=== PATIENT | male | born 1985 | race Asian ===

== ENCOUNTER 2018-08-07 02:59 | Inpatient (IN) | payer SELFPAY, BC, OTHER ==
[2018-08-07] MEDS: FAMOTIDINE 20 MG INJ IV (05:13)
[2018-08-07] MEDS: morphine 2 MG INJ IV ×2 (05:13→13:11)
[2018-08-07] MEDS: SOD CHLORIDE 0.9% 1,000 ML IV ×2 (05:13→12:36)
[2018-08-07] MEDS: ONDANSETRON 4 MG INJ IV (05:13)
[2018-08-07 05:24] LABS: ADD MAN DIFF? NO
[2018-08-07 05:25] LABS: WHITE BLOOD COUNT 12.5 10^3/ul (4.8-10.8)
[2018-08-07 05:25] LABS: BASOPHIL # 0.1 10^3/ul (0.0-0.1); BASOPHILS % 0.4 % (0.0-2.0); EOSINOPHILS # 0.2 10^3/ul (0.0-0.5); EOSINOPHILS % 1.4 % (0.0-7.0); HEMATOCRIT 46.3 % (42.0-52.0); HEMOGLOBIN 15.1 g/dl (14.0-18.0); LYMPHOCYTES # 1.1 10^3/ul (0.8-2.9); LYMPHOCYTES % 9.1 % (15.0-51.0); MEAN CORPUSCULAR HEMOGLOBIN 29.1 pg (29.0-33.0); MEAN CORPUSCULAR HGB CONC 32.6 g/dl (32.0-37.0); MEAN CORPUSCULAR VOLUME 89.2 fl (82.0-101.0); MEAN PLATELET VOLUME 8.8 fl (7.4-10.4); MONOCYTE # 0.7 10^3/ul (0.3-0.9); MONOCYTES % 5.6 % (0.0-11.0); NEUTROPHIL # 10.4 10^3/ul (1.6-7.5); NEUTROPHILS % 82.9 % (39.0-77.0); PLATELET COUNT 309 10^3/UL (140-415); RED BLOOD COUNT 5.19 10^6/ul (4.70-6.10); RED CELL DISTRIBUTION WIDTH 12.3 % (11.5-14.5)
[2018-08-07 05:28] LABS: ADD UMIC NO; UR ASCORBIC ACID NEGATIVE (NEGATIVE); UR BILIRUBIN (Dip) NEGATIVE (NEGATIVE); UR BLOOD (Dip) NEGATIVE (NEGATIVE); UR CLARITY CLEAR (CLEAR); UR COLOR STRAW (YELLOW); UR GLUCOSE (Dip) NEGATIVE (NEGATIVE); UR KETONES (Dip) NEGATIVE (NEGATIVE); UR LEUKOCYTE ESTERASE (Dip) NEGATIVE Leu/ul (NEGATIVE); UR NITRITE (Dip) NEGATIVE (NEGATIVE); UR SPECIFIC GRAVITY (Dip) 1.004 (1.003-1.030); UR TOTAL PROTEIN (Dip) NEGATIVE (NEGATIVE); UR UROBILINOGEN (Dip) NEGATIVE (NEGATIVE)
[2018-08-07 05:54] LABS: ALANINE AMINOTRANSFERASE 48 IU/L (13-69); ALBUMIN/GLOBULIN RATIO 1.51; ALKALINE PHOSPHATASE 78 IU/L (42-121); ANION GAP 9 (5-13); ASPARTATE AMINO TRANSFERASE 34 IU/L (15-46); BILIRUBIN,INDIRECT 0.7 mg/dl (0-1.1); BILIRUBIN,TOTAL 0.7 mg/dl (0.2-1.3); BLOOD UREA NITROGEN 13 mg/dl (7-20); CALCIUM 10.6 mg/dl (8.4-10.2); CARBON DIOXIDE 30 mmol/L (21-31); CHLORIDE 102 mmol/L (97-110); CREATININE 0.89 mg/dl (0.61-1.24); Estimated GFR > 60 mL/min (>60); GLUCOSE 105 mg/dl (70-220); LIPASE 43 U/L (23-300); POTASSIUM 4.9 mmol/L (3.5-5.1); SODIUM 141 mmol/L (135-144); TOTAL PROTEIN 8.3 g/dl (6.1-8.1)
[2018-08-07] MEDS: PIPER-TAZO 3.375 GM IV (PMX) 100 ML IVPB ×3 (06:47→18:13)
[2018-08-07] MEDS ORDERED: ONDANSETRON 4 MG INJ IV ×3 (07:30→21:30)
[2018-08-07] MEDS ORDERED: ACETAMINOPHEN 325 MG TAB PO ×2 (07:30→12:00)
[2018-08-07] MEDS ORDERED: MAGNESIUM HYDROXIDE 30ML CUP PO (12:00)
[2018-08-07] MEDS ORDERED: hydrALAzine 20 MG INJ IV (12:00)
[2018-08-07] MEDS ORDERED: LORAZEPAM 2 MG INJ IV (12:00)
[2018-08-07] MEDS ORDERED: DOCUSATE SODIUM 100 MG CAP PO (12:00)
[2018-08-07] MEDS ORDERED: ALBUTEROL/IPRATROPIUM (NEB) 3 ML AMP HHN (12:00)
[2018-08-07] MEDS ORDERED: NITROGLYCERIN (SL) 0.4 MG TAB SL (12:00)
[2018-08-07] MEDS ORDERED: NACL 0.9% 3 ML SYG IV (12:00)
[2018-08-07] MEDS ORDERED: HYDROCODONE/APAP (5/325) TAB PO (12:00)
[2018-08-07 12:30] LABS: PARTIAL THROMBOPLASTIN TIME 29.7 Sec (23.0-35.0)
[2018-08-07 12:31] LABS: INR 0.92; PROTIME 12.5 Sec (11.9-14.9)
[2018-08-07 13:12] LABS: FREE T4 (FREE THYROXINE) 1.01 ng/dl (0.79-2.35)
[2018-08-07] MEDS: BUPIVACAINE 0.5%/EPI (SDV) 30 ML INJ (14:51)
[2018-08-07] MEDS ORDERED: ROPIVACAINE 0.5 % 30 ML VIAL (19:49)
[2018-08-07] MEDS ORDERED: ROCURONIUM 50 MG INJ (19:49)
[2018-08-07] MEDS ORDERED: MIDAZOLAM 1 MG/ML 2 ML INJ (19:49)
[2018-08-07] MEDS ORDERED: FENTAnyl 50 MCG/ML VIAL (19:49)
[2018-08-07] MEDS ORDERED: PROPOFOL 20 ML (19:49)
[2018-08-07] MEDS: HEPARIN 5,000 UNIT/1 ML VIAL SC (21:00)
[2018-08-07] MEDS ORDERED: ONDANSETRON 4 MG INJ (21:17)
[2018-08-07] MEDS ORDERED: DEXAMETHASONE 4 MG/ML 5 ML INJ (21:17)
[2018-08-07] MEDS ORDERED: KETOROLAC 30 MG INJ (21:17)
[2018-08-07] MEDS ORDERED: METOCLOPRAMIDE 10 MG INJ (21:17)
[2018-08-07] MEDS ORDERED: CEFAZOLIN 1 GM INJ (21:17)
[2018-08-07] MEDS ORDERED: OXYCODONE/ACETAMINOPHEN (5/325) TAB PO (21:30)
[2018-08-07] MEDS ORDERED: HYDROmorphONE 1 MG/5 ML IV SYRINGE IV ×3 (21:30)
[2018-08-07] MEDS ORDERED: FENTAnyl 50 MCG/ML VIAL IV ×3 (21:30)
[2018-08-07] MEDS ORDERED: METOCLOPRAMIDE 10 MG INJ IV (21:30)
[2018-08-07] MEDS ORDERED: LABETALOL HCL 20MG INJ IV (21:30)
[2018-08-07] MEDS ORDERED: EPHEDrine SULFATE 50 MG/5 ML SYG IV (21:30)
[2018-08-07] MEDS ORDERED: DIPHENHYDRAMINE 50 MG INJ IV (21:30)
[2018-08-07] MEDS ORDERED: MEPERIDINE 25 MG INJ IV (21:30)
[2018-08-07] MEDS ORDERED: NEOSTIGMINE 10 MG INJ (22:21)
[2018-08-07] MEDS ORDERED: GLYCOPYRROLATE 0.4 MG INJ (22:21)
[2018-08-07] MEDS ORDERED: NALOXONE (0.4 MG/ML) INJ (22:45)
[2018-08-08] MEDS ORDERED: ACETAMINOPHEN 325 MG TAB PO
[2018-08-08] MEDS ORDERED: ONDANSETRON 4 MG INJ IV
[2018-08-08] MEDS: ALBUTEROL 0.083% (NEB) 2.5 MG/3 ML AMP HHN (00:18)
[2018-08-08] MEDS: IPRATROPIUM (NEB) 0.5 MG/2.5 ML AMP HHN (00:18)
[2018-08-08] MEDS: FUROSEMIDE 20 MG INJ IV ×2 (00:37→15:15)
[2018-08-08] MEDS: SOD CHLORIDE 0.9% 1,000 ML IV (02:00)
[2018-08-08] MEDS: PIPER-TAZO 3.375 GM IV (PMX) 100 ML IVPB ×4 (02:36→18:23)
[2018-08-08] MEDS: D5W-0.45 NACL + KCL 20 MEQ 1,000 ML IV (02:37)
[2018-08-08] MEDS: HYDROmorphONE 0.5 MG/0.5 ML SYG IV ×4 (04:17→22:14)
[2018-08-08 05:17] LABS: ADD MAN DIFF? NO
[2018-08-08 05:22] LABS: ABNORMAL IP MESSAGE 1; BASOPHILS % 0.1 % (0.0-2.0); HEMATOCRIT 42.7 % (42.0-52.0); HEMOGLOBIN 14.1 g/dl (14.0-18.0); LYMPHOCYTES # 0.5 10^3/ul (0.8-2.9); LYMPHOCYTES % 3.5 % (15.0-51.0); MEAN CORPUSCULAR HEMOGLOBIN 29.7 pg (29.0-33.0); MEAN CORPUSCULAR VOLUME 89.9 fl (82.0-101.0); MEAN PLATELET VOLUME 9.1 fl (7.4-10.4); MONOCYTE # 0.5 10^3/ul (0.3-0.9); MONOCYTES % 3.9 % (0.0-11.0); PLATELET COUNT 278 10^3/UL (140-415); POSITIVE DIFF @See below; RED BLOOD COUNT 4.75 10^6/ul (4.70-6.10); RED CELL DISTRIBUTION WIDTH 12.5 % (11.5-14.5)
[2018-08-08 05:53] LABS: ANION GAP 8 (5-13); BLOOD UREA NITROGEN 16 mg/dl (7-20); CALCIUM 8.9 mg/dl (8.4-10.2); CARBON DIOXIDE 27 mmol/L (21-31); CHLORIDE 102 mmol/L (97-110); CHOL/HDL RATIO 2.9 RATIO; CHOLESTEROL 182 mg/dl (100-200); CREATININE 1.06 mg/dl (0.61-1.24); Estimated GFR > 60 mL/min (>60); GLUCOSE 145 mg/dl (70-220); HDL CHOLESTEROL 62 mg/dl (28-63); LDL CHOLESTEROL,CALCULATED 113 mg/dl; MAGNESIUM 1.6 mg/dl (1.7-2.5); PHOSPHORUS 4.2 mg/dl (2.5-4.9); POTASSIUM 3.8 mmol/L (3.5-5.1); SODIUM 137 mmol/L (135-144); TRIGLYCERIDES 33 mg/dl (0-149)
[2018-08-08 06:16] LABS: THYROID STIMULATING HORMONE 0.519 MIU/L (0.465-4.680)
[2018-08-08] MEDS: MAGNESIUM SULFATE 2 GM/50 ML 50 ML IVPB (07:04)
[2018-08-08 09:18] LABS: HEMOGLOBIN A1C 5.3 % (0-5.9)
[2018-08-08] MEDS: FAMOTIDINE 20 MG INJ IV ×2 (09:24→21:02)
[2018-08-08] MEDS: HEPARIN 5,000 UNIT/1 ML VIAL SC ×2 (09:32→21:00)
[2018-08-08] MEDS: DEXAMETHASONE 10 MG/ML 1 ML INJ IV (15:13)
[2018-08-08] MEDS: ALBUTEROL/IPRATROPIUM (NEB) 3 ML AMP HHN ×2 (15:50→21:00)
[2018-08-08] MEDS ORDERED: FUROSEMIDE 20 MG INJ IV (18:00)
[2018-08-09] MEDS: PIPER-TAZO 3.375 GM IV (PMX) 100 ML IVPB ×4 (00:34→18:30)
[2018-08-09] MEDS: ALBUTEROL/IPRATROPIUM (NEB) 3 ML AMP HHN ×5 (00:42→21:00)
[2018-08-09 06:35] LABS: ADD MAN DIFF? NO
[2018-08-09 06:52] LABS: WHITE BLOOD COUNT 9.8 10^3/ul (4.8-10.8)
[2018-08-09 06:53] LABS: BASOPHILS % 0.3 % (0.0-2.0); EOSINOPHILS % 0.2 % (0.0-7.0); HEMOGLOBIN 12.7 g/dl (14.0-18.0); LYMPHOCYTES # 1.6 10^3/ul (0.8-2.9); LYMPHOCYTES % 16.2 % (15.0-51.0); MEAN CORPUSCULAR HEMOGLOBIN 29.7 pg (29.0-33.0); MEAN CORPUSCULAR HGB CONC 32.6 g/dl (32.0-37.0); MEAN CORPUSCULAR VOLUME 91.1 fl (82.0-101.0); MEAN PLATELET VOLUME 9.5 fl (7.4-10.4); MONOCYTE # 0.6 10^3/ul (0.3-0.9); MONOCYTES % 6.3 % (0.0-11.0); NEUTROPHIL # 7.5 10^3/ul (1.6-7.5); NEUTROPHILS % 76.7 % (39.0-77.0); PLATELET COUNT 289 10^3/UL (140-415); RED BLOOD COUNT 4.28 10^6/ul (4.70-6.10); RED CELL DISTRIBUTION WIDTH 12.9 % (11.5-14.5)
[2018-08-09] MEDS: HYDROmorphONE 0.5 MG/0.5 ML SYG IV ×3 (07:00→22:35)
[2018-08-09 07:05] LABS: ANION GAP 7 (5-13); BLOOD UREA NITROGEN 15 mg/dl (7-20); CALCIUM 9.2 mg/dl (8.4-10.2); CARBON DIOXIDE 31 mmol/L (21-31); CHLORIDE 104 mmol/L (97-110); CREATININE 0.98 mg/dl (0.61-1.24); Estimated GFR > 60 mL/min (>60); GLUCOSE 92 mg/dl (70-220); POTASSIUM 4.1 mmol/L (3.5-5.1); SODIUM 142 mmol/L (135-144)
[2018-08-09] MEDS: FAMOTIDINE 20 MG INJ IV ×2 (09:06→21:18)
[2018-08-09] MEDS: KETOROLAC 30 MG INJ IV (09:06)
[2018-08-09] MEDS: HEPARIN 5,000 UNIT/1 ML VIAL SC ×2 (09:26→21:53)
[2018-08-09] MEDS: FUROSEMIDE 20 MG INJ IV (13:31)
[2018-08-09] MEDS ORDERED: VITAMIN A & D 5 GM OINT PACKET TOP (18:26)
[2018-08-10] MEDS: PIPER-TAZO 3.375 GM IV (PMX) 100 ML IVPB ×5 (00:55→23:31)
[2018-08-10] MEDS: ALBUTEROL/IPRATROPIUM (NEB) 3 ML AMP HHN ×4 (01:00→21:00)
[2018-08-10] MEDS: HYDROmorphONE 0.5 MG/0.5 ML SYG IV ×4 (04:57→23:32)
[2018-08-10 05:18] LABS: ADD MAN DIFF? NO
[2018-08-10 05:31] LABS: WHITE BLOOD COUNT 8.8 10^3/ul (4.8-10.8)
[2018-08-10 05:31] LABS: BASOPHIL # 0.1 10^3/ul (0.0-0.1); BASOPHILS % 0.6 % (0.0-2.0); EOSINOPHILS # 0.2 10^3/ul (0.0-0.5); EOSINOPHILS % 2.5 % (0.0-7.0); HEMATOCRIT 39.7 % (42.0-52.0); HEMOGLOBIN 12.8 g/dl (14.0-18.0); LYMPHOCYTES # 1.9 10^3/ul (0.8-2.9); LYMPHOCYTES % 21.8 % (15.0-51.0); MEAN CORPUSCULAR HEMOGLOBIN 29.2 pg (29.0-33.0); MEAN CORPUSCULAR HGB CONC 32.2 g/dl (32.0-37.0); MEAN CORPUSCULAR VOLUME 90.6 fl (82.0-101.0); MEAN PLATELET VOLUME 9.2 fl (7.4-10.4); MONOCYTE # 0.6 10^3/ul (0.3-0.9); MONOCYTES % 6.8 % (0.0-11.0); NEUTROPHILS % 67.8 % (39.0-77.0); PLATELET COUNT 304 10^3/UL (140-415); RED BLOOD COUNT 4.38 10^6/ul (4.70-6.10); RED CELL DISTRIBUTION WIDTH 12.6 % (11.5-14.5)
[2018-08-10 05:57] LABS: ANION GAP 11 (5-13); BLOOD UREA NITROGEN 19 mg/dl (7-20); CALCIUM 9.2 mg/dl (8.4-10.2); CARBON DIOXIDE 30 mmol/L (21-31); CHLORIDE 102 mmol/L (97-110); Estimated GFR > 60 mL/min (>60); GLUCOSE 95 mg/dl (70-220); SODIUM 143 mmol/L (135-144)
[2018-08-10] MEDS: FAMOTIDINE 20 MG INJ IV ×2 (07:48→21:52)
[2018-08-10] MEDS: HEPARIN 5,000 UNIT/1 ML VIAL SC ×2 (08:02→22:01)
[2018-08-10] MEDS ORDERED: HYDROmorphONE 1 MG/5 ML IV SYRINGE IV ×3 (21:00)
[2018-08-10] MEDS ORDERED: METOCLOPRAMIDE 10 MG INJ IV (21:00)
[2018-08-10] MEDS ORDERED: ONDANSETRON 4 MG INJ IV (21:00)
[2018-08-10] MEDS ORDERED: hydrALAzine 20 MG INJ IV (21:00)
[2018-08-10] MEDS ORDERED: FENTAnyl 50 MCG/ML VIAL IV ×3 (21:00)
[2018-08-10] MEDS ORDERED: EPHEDrine SULFATE 50 MG/5 ML SYG IV (21:00)
[2018-08-10] MEDS ORDERED: LABETALOL HCL 20MG INJ IV (21:00)
[2018-08-11] MEDS: ALBUTEROL/IPRATROPIUM (NEB) 3 ML AMP HHN ×2 (01:00→05:00)
[2018-08-11 05:45] LABS: ADD MAN DIFF? NO
[2018-08-11] MEDS: HYDROmorphONE 0.5 MG/0.5 ML SYG IV (05:47)
[2018-08-11] MEDS: PIPER-TAZO 3.375 GM IV (PMX) 100 ML IVPB ×2 (05:47→11:20)
[2018-08-11 05:48] LABS: BASOPHILS % 0.5 % (0.0-2.0); EOSINOPHILS # 0.5 10^3/ul (0.0-0.5); EOSINOPHILS % 6.7 % (0.0-7.0); HEMATOCRIT 40.4 % (42.0-52.0); HEMOGLOBIN 13.2 g/dl (14.0-18.0); LYMPHOCYTES # 2.1 10^3/ul (0.8-2.9); LYMPHOCYTES % 26.3 % (15.0-51.0); MEAN CORPUSCULAR HEMOGLOBIN 28.9 pg (29.0-33.0); MEAN CORPUSCULAR HGB CONC 32.7 g/dl (32.0-37.0); MEAN CORPUSCULAR VOLUME 88.6 fl (82.0-101.0); MEAN PLATELET VOLUME 9.1 fl (7.4-10.4); MONOCYTE # 0.7 10^3/ul (0.3-0.9); MONOCYTES % 8.5 % (0.0-11.0); NEUTROPHIL # 4.5 10^3/ul (1.6-7.5); NEUTROPHILS % 56.9 % (39.0-77.0); PLATELET COUNT 300 10^3/UL (140-415); RED BLOOD COUNT 4.56 10^6/ul (4.70-6.10); RED CELL DISTRIBUTION WIDTH 12.2 % (11.5-14.5)
[2018-08-11 05:48] LABS: WHITE BLOOD COUNT 7.9 10^3/ul (4.8-10.8)
[2018-08-11 06:08] LABS: ANION GAP 9 (5-13); BLOOD UREA NITROGEN 12 mg/dl (7-20); CALCIUM 9.5 mg/dl (8.4-10.2); CARBON DIOXIDE 28 mmol/L (21-31); CHLORIDE 105 mmol/L (97-110); CREATININE 0.86 mg/dl (0.61-1.24); Estimated GFR > 60 mL/min (>60); GLUCOSE 87 mg/dl (70-220); SODIUM 142 mmol/L (135-144)
[2018-08-11] MEDS: FAMOTIDINE 20 MG INJ IV (09:13)
[2018-08-11] MEDS: HEPARIN 5,000 UNIT/1 ML VIAL SC (09:24)
== END 2018-08-11 13:15 | disposition home or self-care (01) | DRG 343 ==
LOC: ICU 08-08 02:09 → FTE 02:59 → 2NE 08-08 11:42 → 6WM 08-08 16:58 → MS1 07:02
PROC: 0DTJ4ZZ Resection of Appendix, Percutaneous Endoscopic Approach (ICD-10-PCS; principal; 2018-08-07 14:00)
DX: K35.80 Unspecified acute appendicitis (principal); R09.02 Hypoxemia; J70.2 Acute drug-induced interstitial lung disorders; T41.295A Adverse effect of other general anesthetics, initial encounter; Y92.234 Operating room of hospital as the place of occurrence of the external cause
CPT/HCPCS: 36415; 71045; 74176; 80048; 80053; 80061; 81003; 83036; 83690; 83735; 84100; 84439; 84443; 85025; 85610; 85730; 87081; 88304; 94640; 94664; 96361; 96374; 96375; 99285-25